=== PATIENT | male | born 1980 | race Caucasian/White ===

== ENCOUNTER 2018-10-17 21:03 | Emergency (ER) | payer OTHER ==
[~2018-10-17] VITALS: Ht 170.2 cm; Wt 57.6 kg
[2018-10-17 21:09] VITALS: Ht 170.2 cm; Wt 57.6 kg
[2018-10-17 22:05] LABS: BASOPHIL % 1.7 % (0-2); PLATELET COUNT 291 x10^3mcL (130-400); RED CELL DISTRIBUTION WIDTH 13.7 % (11.5-14.5)
[2018-10-17 22:16] LABS: CALCIUM 9.1 mg/dL (8.5-10.1); CARBON DIOXIDE 30.4 mmol/L (21-32); CHLORIDE SERUM 107 mmol/L (98-107); CREATININE SERUM 1.1 mg/dL (0.7-1.3); GFR1 > 60 mL/min; GLUCOSE SERUM 111 mg/dL (74-106); POTASSIUM SERUM 4.6 mmol/L (3.5-5.1); SODIUM SERUM 145 mmol/L (136-145)
[2018-10-17 22:21] LABS: ALBUMIN 4.5 g/dL (3.4-5.0); ALKALINE PHOSPHATASE 114 U/L (46-116); ALT/SGPT 134 U/L (16-63); AST/SGOT 146 U/L (15-37); BILIRUBIN TOTAL 0.41 mg/dL (0.20-1.00)
[2018-10-17 22:22] LABS: CHOLESTEROL 234 mg/dL (<200)
[2018-10-17 22:24] LABS: AMPHETAMINE QUAL UR POSITIVE (See below)
[2018-10-18 01:33] VITALS: BP 138/97
== END 2018-10-18 01:33 | disposition home or self-care (01) ==
LOC: ED 21:03
PROVIDERS: Emergency Medicine
DX: R56.9 Unspecified convulsions (principal); E78.00 Pure hypercholesterolemia, unspecified; F15.10 Other stimulant abuse, uncomplicated; F10.10 Alcohol abuse, uncomplicated
CPT/HCPCS: G0480; J3411; J3475; J3490; Q0092

== ENCOUNTER 2019-07-22 09:53 | Emergency (ER) | payer OTHER ==
[~2019-07-22] VITALS: Ht 170.2 cm; Wt 53.1 kg
[2019-07-22 10:00] VITALS: Ht 170.2 cm; Wt 53.1 kg
[2019-07-22 11:05] LABS: BASOPHIL % 1.5 % (0-2); PLATELET COUNT 200 x10^3mcL (130-400); RED CELL DISTRIBUTION WIDTH 14.4 % (11.5-14.5)
[2019-07-22 11:25] LABS: CALCIUM 8.8 mg/dL (8.5-10.1); CARBON DIOXIDE 25.9 mmol/L (21-32); CHLORIDE SERUM 100 mmol/L (98-107); CREATININE SERUM 0.7 mg/dL (0.7-1.3); GFR1 > 60 mL/min; GLUCOSE SERUM 84 mg/dL (74-106); POTASSIUM SERUM 4.1 mmol/L (3.5-5.1); SODIUM SERUM 140 mmol/L (136-145)
[2019-07-22 11:28] LABS: ALBUMIN 4.4 g/dL (3.4-5.0); ALKALINE PHOSPHATASE 110 U/L (46-116); ALT/SGPT 205 U/L (16-63); AST/SGOT 368 U/L (15-37); BILIRUBIN TOTAL 0.8 mg/dL (0.20-1.00)
[2019-07-22 11:45] LABS: CHOLESTEROL 242 mg/dL (<200); TOTAL PROTEIN, SERUM 8.3 g/dL (6.4-8.2)
[2019-07-22 11:54] LABS: AMPHETAMINE QUAL UR NONE DETECTED (See below)
[2019-07-22 13:29] VITALS: BP 151/90
== END 2019-07-22 13:29 | disposition home or self-care (01) ==
LOC: ED 09:53
PROVIDERS: Specialist
DX: R20.2 Paresthesia of skin (principal); F10.129 Alcohol abuse with intoxication, unspecified; F17.210 Nicotine dependence, cigarettes, uncomplicated; F15.10 Other stimulant abuse, uncomplicated; F14.10 Cocaine abuse, uncomplicated; Y90.7 Blood alcohol level of 200-239 mg/100 ml
CPT/HCPCS: 36415; 99406; G0480; Q0092

== ENCOUNTER 2019-08-16 12:05 | Emergency (ER) | payer OTHER ==
[~2019-08-16] VITALS: Ht 170.2 cm; Wt 53.3 kg
[2019-08-16 12:30] VITALS: Ht 170.2 cm; Wt 53.3 kg
[2019-08-16 12:44] VITALS: BP 151/87
== END 2019-08-16 13:07 | disposition home or self-care (01) ==
LOC: ED 12:05
DX: G56.32 Lesion of radial nerve, left upper limb (principal)

== ENCOUNTER 2019-10-16 12:11 | Emergency (ER) | payer OTHER ==
[~2019-10-16] VITALS: Ht 170.2 cm; Wt 58.1 kg
[2019-10-16 12:23] VITALS: Ht 170.2 cm; Wt 58.1 kg
[2019-10-16 12:47] VITALS: BP 112/75
== END 2019-10-16 12:47 | disposition home or self-care (01) ==
LOC: ED 12:11
DX: F10.229 Alcohol dependence with intoxication, unspecified (principal)

== ENCOUNTER 2020-01-09 16:55 | Emergency (ER) | payer OTHER ==
[~2020-01-09] VITALS: Ht 175.3 cm; Wt 77.1 kg
[2020-01-09 17:08] VITALS: Ht 175.3 cm; Wt 77.1 kg
[2020-01-09 17:36] VITALS: BP 168/90
== END 2020-01-09 17:36 | disposition home or self-care (01) ==
LOC: ED 16:55
DX: S00.211A Abrasion of right eyelid and periocular area, initial encounter (principal); S60.511A Abrasion of right hand, initial encounter; F17.210 Nicotine dependence, cigarettes, uncomplicated; F10.129 Alcohol abuse with intoxication, unspecified; K76.9 Liver disease, unspecified; Z71.6 Tobacco abuse counseling; X58.XXXA Exposure to other specified factors, initial encounter; Y93.89 Activity, other specified; Y92.89 Other specified places as the place of occurrence of the external cause; Y99.8 Other external cause status
CPT/HCPCS: 99406